=== PATIENT | female | born 1965 | race Hispanic/Latino ===

== ENCOUNTER 2018-07-25 06:32 | Day surgery (SDC) | payer BC ==
[2018-07-20 14:17] LABS: Potassium 4.1 mmol/L (3.5-5.1)
[2018-07-25 06:57] LABS: Specific Gravity 1.025 (1.005-1.030)
[2018-07-25] MEDS ORDERED: Ringers Lactate 1,000 ML IV ONE (06:58)
[2018-07-25] MEDS ORDERED: FENTANYL CITR 100 MCG/2 ML ONE ×2 (07:07→08:01)
[2018-07-25] MEDS ORDERED: PROPOFOL 200 MG/20 ML VIAL IV ONE (07:07)
[2018-07-25] MEDS ORDERED: LIDOCAINE 2% MPF 5 ML VIAL ONE (07:07)
[2018-07-25] MEDS ORDERED: MIDAZOLAM HCL 2 MG/2 ML INJ ONE (07:07)
[2018-07-25] MEDS ORDERED: ONDANSETRON HCL 40 MG/20 ML VIAL ONE (07:08)
[2018-07-25] MEDS: MEPERIDINE HCL 25 MG/0.5 ML ONE ×3 (08:48→09:02)
[2018-07-25] MEDS ORDERED: MEPERIDINE HCL 25 MG/0.5 ML ONE (09:08)
[2018-07-25] MEDS ORDERED: IBUPROFEN 200 MG TAB PO ONE (10:35)
[2018-07-25] MEDS ORDERED: IBUPROFEN 400 MG TAB ONE (10:36)
--- NOTE | 2018-07-25 11:54 | OP ---
Date of Procedure: 07/25/2018 Surgeon: Kiersten Laughlin MD Preoperative Diagnoses: Menorrhagia, leiomyomata, possible submucous leiomyoma. Postoperative Diagnoses: Menorrhagia, leiomyomata, and intrauterine adhesions. Procedures Performed: 1.Operative hysteroscopy. 2.Lysis of intrauterine synechiae. 3.Dilation and curettage. Anesthesia: General with LMA. Specimens: Endometrial curettings. Complications: No complications. Drains: None. Condition: Stable. Fluid deficit minimal. Findings: Uterus severely retroflexed. Cavity in the distal 1/3 appeared to be open, and endometriu m appeared to be thickened. Central intrauterine synechiae consistent with prior ablation. Attempt was made to take down the synechiae and most of them were taken down, however, no appearance of leiom yomata could be resected from the cavity. The endometrial curettings were small amount. Description Of Procedure: After informed consent was verified, patient was taken back to the OR, crystal laura in a supine fashion on the operating table. After general anesthesia was given, she was placed i n a dorsal lithotomy position using Von stirrups. Pelvic exam was performed. Uterus retroflexed. Cervix anterior. Prep x3 with Betadine was done. Anterior lip grasped with 2 Allis clamps, then wi th a single-tooth tenaculum. The cervix was unable to be traversed with the 18-Moldovan Symphion scope , so this was downsized to a SlimLine diagnostic hysteroscope with a separate bag, then passed the sc ope through the cervical canal into the uterine cavity. Once the cavity was opened up with the help of the scope, then this was dilated to 18-Moldovan sequentially with the cervical dilators. Then, the Symphion scope was primed, and we started the procedure. The resectoscopic device was also inserted through the shaft while performing this. Once we were in the uterine cavity, then the plan was to take down the intrauterine adhesions in the center such to be able to visualize the entire ca vity if there was anything behind it. No appearance of leiomyomata despite taking down all the adhes ions, so at this point, the curettings were performed in a circumferential fashion. Then, pictures w ere taken. The scope was removed. The fluid deficit was minimal. Normal saline was used for disten tion, 30-degree lens and 18-Moldovan scope as described above. All the instruments were removed. Instrument, needle, and sponge counts were done and were correct a t the end of the case. The patient was recovered from anesthesia and taken to PACU in a stable condi tion. She will follow up in the office at 1 week for her pathology results and discussion of her fur ther options, which include observation, possible repeat ablation, or medical treatment versus a hyst erectomy. BINU/ERROL Voice ID: [id number] Report ID: [id number]
== END 2018-07-25 11:15 | disposition home or self-care (01) ==
LOC: OR 06:32
PROVIDERS: ATTEND Obstetrics & Gynecology
PROC: 0UN98ZZ Release Uterus, Via Natural or Artificial Opening Endoscopic (ICD-10-PCS; 2018-07-25)
PROC: 0UDB8ZX Extraction of Endometrium, Via Natural or Artificial Opening Endoscopic, Diagnostic (ICD-10-PCS; principal; 2018-07-25 07:30)
DX: N92.1 Excessive and frequent menstruation with irregular cycle (principal); N85.6 Intrauterine synechiae; I10 Essential (primary) hypertension; Z80.41 Family history of malignant neoplasm of ovary
CPT/HCPCS: 36415; 80048; 81025; 88305; J2175; J2250; J2405; J3010

== ENCOUNTER 2019-01-11 06:32 | Day surgery (SDC) | payer BC ==
[2019-01-08 11:26] LABS: Absolute Monocytes 0.7 K/uL (0.1-1.3); Basophils % 0.8 % (0-1.3); Eosinophils % 2.4 % (0-4.4); Hematocrit 44.6 % (36.0-45.0); Monocytes % 8.1 % (3.3-12.3); RBC Red Blood Cell Count 4.87 M/uL (3.86-4.86)
[2019-01-08 11:28] LABS: Urine Appearance CLOUDY; Urine Bilirubin NEGATIVE (NEG); Urine Blood 2+ (NEG); Urine Color YELLOW; Urine Glucose NEGATIVE (NEG); Urine Protein NEGATIVE (NEG); Urine Urobilinogen 0.2 mg/dL (0.2-1.0)
[2019-01-08 11:29] LABS: Urine Microscopic Reflex ORDER UMIC
[2019-01-08 11:35] LABS: Urine Bacteria 20-50 /HPF (<20); Urine Culture Reflex Order NOT NEEDED
[2019-01-11] MEDS ORDERED: Ringers Lactate 1,000 ML IV ONE ×2 (07:00→09:21)
[2019-01-11] MEDS ORDERED: CEFAZOLIN/SWI 2gm 2 GM/20 ML SYR ONE (07:00)
[2019-01-11] MEDS ORDERED: SCOPOLAMINE HYDROBROMIDE PATCH TD ONE (07:00)
[2019-01-11] MEDS ORDERED: PROPOFOL 200 MG/20 ML VIAL IV ONE (07:13)
[2019-01-11] MEDS ORDERED: ROCURONIUM 50 MG/5 ML VIAL IV ONE ×2 (07:14→08:23)
[2019-01-11] MEDS ORDERED: GLYCOPYRROLATE 0.2 MG/ML SYR ONE ×2 (07:14→10:45)
[2019-01-11] MEDS ORDERED: DEXAMETHASONE 10 MG/ML VIAL ONE (07:15)
[2019-01-11] MEDS ORDERED: LIDOCAINE 2% MPF 5 ML VIAL ONE (07:15)
[2019-01-11] MEDS ORDERED: MIDAZOLAM HCL 2 MG/2 ML INJ ONE (07:16)
[2019-01-11] MEDS ORDERED: FENTANYL CITR 250 MCG/5 ML ONE (07:16)
[2019-01-11] MEDS ORDERED: NEOSTIGMINE 1 MG/ML -10 ML VIAL ONE ×2 (07:20→10:45)
[2019-01-11] MEDS ORDERED: ONDANSETRON 4 MG/2 ML VIAL ONE ×3 (07:20→13:29)
[2019-01-11] MEDS ORDERED: NA CHLORIDE 0.9% 1,000 ML ONE (07:39)
[2019-01-11] MEDS ORDERED: EPHEDRINE SULF 50 MG/ML VIAL ONE (08:33)
[2019-01-11] MEDS ORDERED: KETOROLAC 30 MG/ML INJ ONE (09:59)
[2019-01-11] MEDS ORDERED: FENTANYL CITR 100 MCG/2 ML ONE (10:24)
[2019-01-11] MEDS ORDERED: HYDROCODONE/APAP 5/325 MG TAB PO PRN (10:26)
[2019-01-11] MEDS ORDERED: MEPERIDINE HCL 25 MG/0.5 ML IM PRN (10:26)
[2019-01-11] MEDS ORDERED: IBUPROFEN 200 MG TAB PO PRN (10:26)
[2019-01-11] MEDS ORDERED: PROMETHAZINE 25 MG TABLET PO PRN (10:26)
[2019-01-11] MEDS: HYDROMORPHONE HCL 1 MG/ML INJ ONE ×2 (10:53→10:58)
[2019-01-11] MEDS ORDERED: HYDROCODONE/APAP 5/325 MG TAB ONE (12:36)
--- NOTE | 2019-01-11 19:15 | OP ---
Date of Procedure: 01/11/2019 Surgeon: Kiersten Laughlin MD Pie Crimping Machine Operator: Marleni Fuchs. Preoperative Diagnoses: Recurrent menorrhagia, dysmenorrhea, and fibroids. Postoperative Diagnoses: Recurrent menorrhagia, dysmenorrhea, fibroids, and endometriosis. Procedures Performed: Total laparoscopic hysterectomy, bilateral salpingo-oophorectomy, endometriosi s excision, lysis of adhesion, cystoscopy. Anesthesia: General endotracheal. Specimens: Uterus, bilateral tubes and ovaries. Endometriosis was present as specimen with the uter us. One other implant was ablated and left alone without excision. Estimated Blood Loss: Minimal. Complications: None. Drains: Malcolm catheter. There was extensive lysis of bladder adhesions and therefore Malcolm catheter had to be left in place for bladder rest for 3 days. The patient is being discharged home with a Fo dontae. Condition: Stable. Findings: There were dense adhesions to the anterior abdominal wall from the omentum due to her prio r laparoscopic cholecystectomy, her , and tubal, all those things. The adhesions had to be t aken down in order for me to even start the case, and these were quite dense and were taken down with the LigaSure visualizing, there were omental adhesions to the sidewall to the endometriosis on the u terus and bilateral lateral aspects of the scar. Uterus with endometriosis on the top of the serosa, there was endometriosis in the posterior cul-de-s ac in the left lateral pararectal space. This was cauterized, but rest of the lesions were removed w ith the specimen of the uterus. Both tubes and ovaries were removed. There were extensive adhesions of the bladder, very dense to the lower part of the body of the uterus. Once these were , there was a superficial bladder injury. There was nothing that needed suturing. However, bladder re st was felt to be appropriate, and so patient was left with a Malcolm catheter, after the procedure was done, cystoscopy was performed and the entire bladder appeared to be completely intact without evide nce of any foreign body or injury to the bladder. Both ureteric orifices were patent and good stream s of urine from both. Description Of Procedure: After informed consent was verified, the patient was brought back to the O R, placed in a supine fashion on the operating table. Two grams of Ancef were given. She was then p laced in a dorsal lithotomy position using Von stirrups. Arms were tucked by the side. SCDs were started. Time-out done. Then procedure started. Abdomen, vulva, vagina, and perineum were prepped and draped in a sterile fashion. Malcolm was placed to drain the bladder and attached to cysto-tubing to be able to retrograde fill. A medium VCare was introduced into the uterus and fixed in place. It was difficult to advance the tip of the VCare all the way past the adhesions, that are a consequence of her prior ablations, but the uterus appeared to be enlarged, about 10 week size. After the bottom was draped, a supraumbilical incision was made about 5 cm above the level of the umb ilicus in the midline with a 15-blade. The fascia was exposed and incised with the same, and the fas cial edges were tagged with 0 Vicryl sutures. Then, peritoneum was entered sharply with scissors, th en S retractors placed after clearing out the peritoneal edges with my finger by sweeping around, the n Deanne was introduced and fixed in place. We had difficulties with the case starting due to the fa ct that there were monitor issues and camera issues. They had to be solved, then I continued with e case. A 5 mm left lower quadrant port was placed under direct vision and a 10 mm suprapubic, then went with a 5 mm camera through the left lower quadrant in order to take down the adhesions of the omentum dionicio t were extremely dense right at the level of the umbilicus. These were completely taken down with th e LigaSure. Then after the 10 port was placed, other adhesions were taken down with the help of the 5 port. Then, a 5 mm right lower quadrant port was also placed. The adhesions of the omentum to the right and left lateral lepe and to the scar were all taken down. This exposed the uterus. Then, the patient was placed in Trendelenburg position. The colon was retracted with the epiploica e that were tagged with the help of a 3-0 Monocryl stitch and using the Chapin-Zeyad, the retracti on was obtained from the superior aspect of the left upper quadrant. Once the pelvic cavity was well visualized, there was endometriosis in the left lateral cul-de-sac, b ut all other than that, no other lesions were seen in the cul-de-sac. There were lateral lesions in the posterior peritoneum, close to the uterosacral, and these were to be dissected along and left jakub ng with the uterine specimen. Both ureters were identified from the pelvic brim to the ureteric tunnel, and there was no evidence o f any anatomical distortion. The bladder anteriorly was densely adhered, and there was no space betw een the bladder peritoneum and the uterus, and this was to be taken down when performing the bladder flap. The left tube was first taken down. Utero-ovarian ligament was taken down. The round ligament was t aken down. The anterior and posterior leaves of the broad ligament were opened up. The posterior wa s taken out dissecting the ureter laterally. Then I was able to open the peritoneum anteriorly and o pened up the adhesions of the bladder and dissect the peritoneum first and leave the bladder adhesion s alone first, going onto the opposite side opening the bladder peritoneum. Then coming back on the left side, the adhesions were well visualized. The broad ligament was completely skeletonized to exp ose the vessels. This was left alone at this point. Then, on the right side, the same dissection wa s performed taking down the tube, utero-ovarian ligament, mesosalpinx, round ligament, broad ligament opened up. Posterior aspect of the broad ligament opened easily to the level of the right uterosacr al ligament, here there was some endometriosis that was included on the medial aspect so that it coul d be included with the specimen. The broad ligament was skeletonized to expose the vessels. Then, the scar here was gently dissected with push-spread technique, exposed well, making sure there was no bladder here, and I cut. The blad avila was adhered to the lower segment of the uterus all the way around the anterior aspect from side-t o-side. Vesicovaginal space was entered first on the right side from the lateral aspect. Then, the bladder adhesions were taken down systematically with the help of the bipolar LigaSure and some areas without cautery and just with cutting. However, there was some damage superficially to the bladder muscle while performing this and this was very superficial, it was mostly bladder serosa. Then went onto the opposite side and the vesicovaginal space was developed underneath the bladder. Then, the b ladder attachment was cut sharply all the way to the left lateral aspect. Once the bladder was relea sed, the vesicovaginal space was further developed on the left side and to the left of the midline as well and then the midline. The dissection was performed to push the bladder inferiorly leaving at l east 3 cm of the anterior vaginal wall exposed below the level of the colpotomy. The scar was much more dense on the lateral aspect where the vessels were to be taken down, so plan w as to perform a colpotomy anteriorly, and then start taking down the lateral aspect. First the vesse ls on the right side were taken and the cardinal ligaments as well with the help of the LigaSure. Th en, the monopolar hook blade was used to perform a colpotomy starting from the midline to the right s ruth all the way down to the level of the right uterosacral ligament. Then leaving this attached stil l to the apex of the cuff, we went on the left side. Here, the vessels were exposed first, vessels w ere taken down with the help of the bipolar basket tip and the 5 mm LigaSure. There was a twist/torq ue on the vaginal cuff with the cup being turned due to the orientation of the uterus and our inabili ty to be able to manipulate it, probably limited by the adhesions of the top of the endometrial canal . After untwisting of this part where the uterine vein was cauterized and cut, there was very minima l bleeding. Once the cardinal ligaments were also cleared out laterally on the left side, then the c olpotomy was performed to complete with a hook blade. Uterus fit very snugly to be retrieved through the vaginal incision. There was a small laceration that occurred while removing this in the right l ateral aspect, about 1 cm, just needed a suture for this to work. Both tube and ovary from the left side were dissected taking down the infundibulopelvic ligament and the mesosalpinx. They were left t ogether without separation and then retrieved through the vagina. The right tube was dissected out o f the mesosalpinx first and removed. Then, the ovary was dissected without any problems from the inf undibulopelvic ligament on the lateral attachment to the lateral wall. This was retrieved through th e vagina as well. Thorough irrigation and suction were performed. No evidence of any active bleedin g. Good hemostasis at both pedicles of the ovarian dissection. The vaginal cuff was closed with the help of a 0 Vicryl in a simple fashion at both angles, on the ri ght side as the closure was being done, attention was paid so that I could suture the laceration that occurred while retrieving the uterus. Then 3 vloqcy-gs-gqzgjq were placed in the middle to have goo d apposition and tissue closure and support, we made sure that the precervical fascia and the rectova ginal septum were included in the suturing. After this was done, the posterior cul-de-sac, left lateral pararectal space lesion was cauterized an d left alone. Then, the peritoneum closed with the help of 3-0 Vicryl in a continuous running fashio n on top of the vaginal cuff, and this made the vaginal closure retroperitoneal as well as the bladde r that was dissected to have layer of peritoneum on the top. After thorough irrigation and suction were performed, pictures were taken. The ports were removed un avila direct vision. Gas desufflated. The umbilical port removed. Fascia at the umbilicus closed wit h the yiqdjl-fn-tfvio tag sutures that were placed, simple 0 Vicryl stitch at the suprapubic fascial incision. All skin incisions closed with interrupted 4-0 Vicryl. Malcolm removed. Vaginal bulb remov ed that was placed for occlusion for maintaining pneumoperitoneum. A cystoscopy was performed with a 17-[place] sheath, 30-degree lens, and normal saline. Normal jets of urine from both ureteric orific es. No evidence of any trauma, electrical or mechanical, to the bladder. No foreign body seen as we ll. There were strong jets of urine from both ureteric orifices. The bladder was completely drained Malcolm was replaced. The vagina was cleaned up and visualized. The sutures were intact and the vagi nal cuff closure optimal. Instrument, needle, and sponge counts x3 were correct at the end of the ca se. The patient tolerated the procedure well. She was extubated in the OR and taken to the PACU in stable condition with Malcolm in place, and instructions given to take Macrobid daily. Malcolm to be lef t in place for 4 days. She will be given instructions to remove it at home and has a 1-week follow u p with me. Any problems to call. All instructions left in the chart. BINU/ERROL Voice ID: [id number] Report ID: [id number]
== END 2019-01-11 13:40 | disposition home or self-care (01) ==
LOC: OR 06:32
PROVIDERS: ATTEND Obstetrics & Gynecology
PROC: 0UT24ZZ Resection of Bilateral Ovaries, Percutaneous Endoscopic Approach (ICD-10-PCS; 2019-01-11)
PROC: 0UT74ZZ Resection of Bilateral Fallopian Tubes, Percutaneous Endoscopic Approach (ICD-10-PCS; 2019-01-11)
PROC: 0U5F4ZZ Destruction of Cul-de-sac, Percutaneous Endoscopic Approach (ICD-10-PCS; 2019-01-11)
PROC: 0UT94ZZ Resection of Uterus, Percutaneous Endoscopic Approach (ICD-10-PCS; principal; 2019-01-11 07:30)
DX: D25.0 Submucous leiomyoma of uterus (principal); N92.1 Excessive and frequent menstruation with irregular cycle; N94.6 Dysmenorrhea, unspecified; N88.8 Other specified noninflammatory disorders of cervix uteri; N83.8 Other noninflammatory disorders of ovary, fallopian tube and broad ligament; N83.12 Corpus luteum cyst of left ovary; N80.0 Endometriosis of uterus; N32.89 Other specified disorders of bladder; K66.0 Peritoneal adhesions (postprocedural) (postinfection); N80.3 Endometriosis of pelvic peritoneum; N80.8 Other endometriosis
CPT/HCPCS: 36415; 81003; 81015; 81025; 85025; 86850; 86900; 86901; 88307; 88309; J0690; J1100; J1170; J2250; J2405; J2704; J2710; J3010; J7030

== ENCOUNTER 2019-01-13 06:44 | Emergency (ER) | payer BC ==
[2019-01-13] MEDS ORDERED: NA CHLORIDE 0.9% 1,000 ML ONE (07:21)
[2019-01-13] MEDS ORDERED: ONDANSETRON 4 MG/2 ML VIAL ONE ×2 (07:22→07:44)
[2019-01-13] MEDS ORDERED: SIMETHICONE 80 MG TAB ONE (07:30)
[2019-01-13 07:33] LABS: Absolute Neutrophil 14.7 K/uL (1.8-8.0); Basophils % 0.4 % (0-1.3); Eosinophils % 0.6 % (0-4.4); Hematocrit 42.6 % (36.0-45.0); Lymphocytes % 5.8 % (15.3-44.8); MPV 9.6 fL (7.6-11.3); Monocytes % 5.7 % (3.3-12.3)
[2019-01-13] MEDS ORDERED: PROMETHAZINE 25 MG/ML VIAL ONE ×2 (07:53→09:38)
[2019-01-13 09:28] LABS: Blood Morphology Comment NOT SEEN (NOT SEEN); Platelet Estimate ADEQ; Urine White Blood Cell Casts OK
--- NOTE | 2019-01-13 09:36 | ER ---
Nurse's Notes [facility] Name: Radha Manrique Age: 53 yrs Sex: Female : 1965 Arrival Date: 01/13/2019 Time: 06:45 Bed 16 Private MD: Laura Vásquez K Diagnosis: Nausea and vomiting;Lower abdominal pain, unspecified Presentation: 01/13 06:54 Presenting complaint: Patient states: she had a hysterectomy 2 days ago and was aa1 prescribed Tylenol #3 and this morning around 0100 she began vomiting. States she had this same reaction to Tylenol #3 in the past but thought it was because she didn't eat with it but this time she ate and it still made her sick. Transition of care: patient was not received from another setting of care. Onset of symptoms was January 13, 2019 at 01:00. Risk Assessment: Do you want to hurt yourself or someone else? Patient reports no desire to harm self or others. Initial Sepsis Screen: Does the patient meet any 2 criteria? No. Patient's initial sepsis screen is negative. Does the patient have a suspected source of infection? No. Patient's initial sepsis screen is negative. Care prior to arrival: None. 06:54 Method Of Arrival: Wheelchair aa1 06:54 Acuity: JASE 3 aa1 Triage Assessment: 07:01 General: Appears in no apparent distress. uncomfortable, Behavior is calm, cooperative, aa1 appropriate for age. CFA: 07:01 LMP N/A - Hysterectomy aa1 Historical: - Allergies: 07:01 Codeine; aa1 - PMHx: 07:01 None; aa1 - PSHx: 07:01 Hysterectomy; leg sx; aa1 - Immunization history:: Flu vaccine is not up to date. - Social history:: Smoking status: Patient/guardian denies using tobacco. - Ebola Screening: : No symptoms or risks identified at this time. Screenin:04 Abuse screen: Denies threats or abuse. Nutritional screening: No deficits noted. em Tuberculosis screening: No symptoms or risk factors identified. Fall Risk None identified. Assessment: 07:05 General: Appears in no apparent distress. uncomfortable, Behavior is cooperative, em anxious, crying, Reports hysterectomy 2 days ago, nauseous after taking hydrocodone medication Denies fever. Pain: Complains of pain in abdomen and epigastric area. Neuro: Level of Consciousness is awake, alert, obeys commands, Oriented to person, place, time, situation. Cardiovascular: Heart tones S1 S2 present Capillary refill < 3 seconds Patient's skin is warm and dry. Respiratory: Airway is patent Respiratory effort is even, unlabored, Respiratory pattern is regular, symmetrical. GI: Abdomen is round non-distended, Bowel sounds present X 4 quads. Abd is soft X 4 quads Abdomen is tender to palpation in abdomen diffusely Reports. : Malcolm in place to gravity drainage Urine is clear, Denies burning with urination. EENT: No signs and/or symptoms were reported regarding the EENT system. Derm: Skin is intact, is healthy with good turgor, Skin is pink, warm \T\ dry. Wound noted sugical incision noted in suprapubic area. Musculoskeletal: Capillary refill < 3 seconds, Range of motion: intact in all extremities. 07:30 Reassessment: nausea medication has not helped symptoms, provider notified, new em medication orders received. 07:45 Reassessment: pt actively vomiting, provider notified, new medication orders received. em 08:40 Reassessment: Patient appears in no apparent distress at this time. Patient and/or em family updated on plan of care and expected duration. Pain level reassessed. Patient is alert, oriented x 3, equal unlabored respirations, skin warm/dry/pink. nausea has improved, rates pain 1/10 Patient states feeling better. Patient states symptoms have improved. 09:40 Reassessment: Patient appears in no apparent distress at this time. No changes from em previously documented assessment. Patient and/or family updated on plan of care and expected duration. Pain level reassessed. Patient is alert, oriented x 3, equal unlabored respirations, skin warm/dry/pink. Vital Signs: 07:01 BP 150 / 99; Pulse 88; Resp 22; Temp 97.7; Pulse Ox 100% on R/A; Weight 79.83 kg; aa1 Height 5 ft. 3 in. (160.02 cm); 08:00 BP 140 / 91; Pulse 76; Resp 18; Pulse Ox 99% on R/A; Pain 1/10; em 07:01 Body Mass Index 31.18 (79.83 kg, 160.02 cm) aa1 ED Course: 06:45 Patient arrived in ED. am2 06:45 Laura Vásquez MD is Private Physician. am2 06:48 [facility]C [facility]. snw 06:48 Timoteo Barry MD is Attending Physician. snw 07:01 Triage completed. aa1 07:01 Arm band placed on left wrist. aa1 07:04 Patient has correct armband on for positive identification. Bed in low position. Call em light in reach. Adult w/ patient. Pulse ox on. NIBP on. 07:05 Initial lab(s) drawn, by me, sent to lab. Inserted saline lock: 20 gauge in left em antecubital area, using aseptic technique. Blood collected. 07:08 Nirmal Osorio LVN is Primary Nurse. em 09:35 Kiersten Laughlin MD is Referral Physician. snw 09:52 IV discontinued, Pressure dressing applied. 5 10:12 No provider procedures requiring assistance completed. IV discontinued, intact, em bleeding controlled, No redness/swelling at site. Administered Medications: 07:17 Drug: NS 0.9% 1000 ml Route: IV; Rate: 1 bolus; Site: left antecubital; iw 08:34 Follow up: IV Status: Completed infusion; IV Intake: 1000ml em 07:17 Drug: Zofran 4 mg Route: IVP; Site: left antecubital; iw 07:37 Follow up: Response: No adverse reaction; Nausea unchanged em 07:37 Drug: Zofran 4 mg Route: IVP; Site: left antecubital; em 07:47 Follow up: Response: No adverse reaction; Nausea unchanged em 07:47 Drug: Phenergan 12.5 mg Route: IVP; Site: left antecubital; iw 08:34 Follow up: Response: No adverse reaction; Nausea is decreased em 08:34 Drug: Simethicone 120 mg Route: PO; em 10:10 Follow up: Response: No adverse reaction em 09:34 Drug: fentaNYL (PF) 25 mcg Route: IM; Site: left deltoid; em 10:08 Follow up: Response: No adverse reaction em 09:34 Drug: Phenergan 12.5 mg Route: IVP; Site: left antecubital; em 10:09 Follow up: Response: No adverse reaction; Nausea is decreased em Intake: 08:34 IV: 1000ml; Total: 1000ml. em Outcome: 09:35 Discharge ordered by . snw 10:10 Discharged to home via wheelchair, with family. em 10:10 Condition: good 10:10 Discharge instructions given to patient, family, Instructed on discharge instructions, follow up and referral plans. medication usage, Demonstrated understanding of instructions, follow-up care, medications, Prescriptions given X 2. 10:12 Patient left the ED. em Signatures: Deanna Boogie, RN RN aa1 Cesilia Laureano, MAIL HANDLERS SUPERVISOR-C MAIL HANDLERS SUPERVISOR-Csnw Nirmal Osorio, IRRIGATION FOREMAN IRRIGATION FOREMAN Rocío Larson RN RN iw Martinez, Maria [facility] Carol Garsia am
--- NOTE | 2019-01-13 09:36 | EDPHYS ---
Physician Documentation [facility] Name: Radha Manrique Age: 53 yrs Sex: Female : 1965 Arrival Date: 01/13/2019 Time: 06:45 Bed 16 Private MD: Laura Vásquez K ED Physician Timoteo Barry HPI: 01/13 06:56 This 53 yrs old Female presents to ER via Unassigned with complaints of snw Nausea/Vomiting, Post Surgical Pain. 06:56 The patient presents to the emergency department with nausea, that is moderate, that is snw severe, abdominal pain, of the right lower quadrant and left lower quadrant, described as crampy, and radiates to the epigastric area. Onset: The symptoms/episode began/occurred suddenly, today. Possible causes: Lap hyst on Thurs. Associated signs and symptoms: Pertinent positives: abdominal pain, nausea. Severity of symptoms: At their worst the symptoms were moderate. The patient has not experienced similar symptoms in the past. The patient has been recently seen by a physician: Dr. Laughlin. pt has had similar N/V episodes with T#3 in the past. Pt states she tried eating with the medication but it has not relieved the associated nausea. 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 - Social history:: Smoking status: Patient/guardian denies using tobacco. - Ebola Screening: : No symptoms or risks identified at this time. ROS: 06:56 Constitutional: Negative for fever, chills, and weight loss, Eyes: Negative for injury, snw pain, redness, and discharge, ENT: Negative for injury, pain, and discharge, Neck: Negative for injury, pain, and swelling, Cardiovascular: Negative for chest pain, palpitations, and edema, Respiratory: Negative for shortness of breath, cough, wheezing, and pleuritic chest pain, Back: Negative for injury and pain, : Negative for injury, bleeding, discharge, and swelling, MS/Extremity: Negative for injury and deformity, Skin: Negative for injury, rash, and discoloration, Neuro: Negative for headache, weakness, numbness, tingling, and seizure. 06:56 Abdomen/GI: Positive for abdominal pain, nausea. Exam: 06:52 Head/Face: Normocephalic, atraumatic. Eyes: Pupils equal round and reactive to light, snw extra-ocular motions intact. Lids and lashes normal. Conjunctiva and sclera are non-icteric and not injected. Cornea within normal limits. Periorbital areas with no swelling, redness, or edema. ENT: Nares patent. No nasal discharge, no septal abnormalities noted. Tympanic membranes are normal and external auditory canals are clear. Oropharynx with no redness, swelling, or masses, exudates, or evidence of obstruction, uvula midline. Mucous membranes moist. Neck: Trachea midline, no thyromegaly or masses palpated, and no cervical lymphadenopathy. Supple, full range of motion without nuchal rigidity, or vertebral point tenderness. No Meningismus. Chest/axilla: Normal chest wall appearance and motion. Nontender with no deformity. No lesions are appreciated. Cardiovascular: Regular rate and rhythm with a normal S1 and S2. No gallops, murmurs, or rubs. Normal PMI, no JVD. No pulse deficits. Respiratory: Lungs have equal breath sounds bilaterally, clear to auscultation and percussion. No rales, rhonchi or wheezes noted. No increased work of breathing, no retractions or nasal flaring. Back: No spinal tenderness. No costovertebral tenderness. Full range of motion. Skin: Warm, dry with normal turgor. Normal color with no rashes, no lesions, and no evidence of cellulitis. MS/ Extremity: Pulses equal, no cyanosis. Neurovascular intact. Full, normal range of motion. Neuro: Awake and alert, GCS 15, oriented to person, place, time, and situation. Cranial nerves II-XII grossly intact. Motor strength 5/5 in all extremities. Sensory grossly intact. Cerebellar exam normal. Normal gait. Psych: Awake, alert, with orientation to person, place and time. Behavior, mood, and affect are within normal limits. 06:52 Constitutional: The patient appears alert, awake, anxious, frail. 06:52 Abdomen/GI: Inspection: intact, dry surgical dressing, splinting abd. + flatus, + hypoactive bowel sounds x 4 quads, Palpation: mild abdominal tenderness, in the right lower quadrant and left lower quadrant. Vital Signs: 07:01 BP 150 / 99; Pulse 88; Resp 22; Temp 97.7; Pulse Ox 100% on R/A; Weight 79.83 kg; aa1 Height 5 ft. 3 in. (160.02 cm); 08:00 BP 140 / 91; Pulse 76; Resp 18; Pulse Ox 99% on R/A; Pain 1/10; em 07:01 Body Mass Index 31.18 (79.83 kg, 160.02 cm) aa1 MDM: 06:49 Patient medically screened. anderson 09:39 Data reviewed: vital signs, nurses notes. Data interpreted: Pulse oximetry: on room air snw is 99 %. Interpretation: normal. Counseling: I had a detailed discussion with the patient and/or guardian regarding: the historical points, exam findings, and any diagnostic results supporting the discharge/admit diagnosis, lab results, the need for outpatient follow up, to return to the emergency department if symptoms worsen or persist or if there are any questions or concerns that arise at home. Response to treatment: the patient's symptoms have mildly improved after treatment. Special discussion: Based on the patient's Hx, exam, and Dx evaluation, there is no indication for emergent surgery or inpatient Tx. It is understood by the patient/guardian that if the Sx's persist or worsen they need to return immediately for re-evaluation. Based on the history and exam findings, there is no indication for further emergent testing or inpatient evaluation. I discussed with the patient/guardian the need to see the OB Gyne specialist for further evaluation of the symptoms. I discussed with the patient/guardian the need to see the primary care provider for further evaluation of the symptoms. 01/13 06:52 Order name: CBC with Diff; Complete Time: 09:29 snw 01/13 06:52 Order name: Chem 7; Complete Time: 07:48 snw 01/13 07:49 Order name: CBC Smear Scan; Complete Time: 09:29 EDMS Administered Medications: 07:17 Drug: NS 0.9% 1000 ml Route: IV; Rate: 1 bolus; Site: left antecubital; iw 08:34 Follow up: IV Status: Completed infusion; IV Intake: 1000ml em 07:17 Drug: Zofran 4 mg Route: IVP; Site: left antecubital; iw 07:37 Follow up: Response: No adverse reaction; Nausea unchanged em 07:37 Drug: Zofran 4 mg Route: IVP; Site: left antecubital; em 07:47 Follow up: Response: No adverse reaction; Nausea unchanged em 07:47 Drug: Phenergan 12.5 mg Route: IVP; Site: left antecubital; iw 08:34 Follow up: Response: No adverse reaction; Nausea is decreased em 08:34 Drug: Simethicone 120 mg Route: PO; em 10:10 Follow up: Response: No adverse reaction em 09:34 Drug: fentaNYL (PF) 25 mcg Route: IM; Site: left deltoid; em 10:08 Follow up: Response: No adverse reaction em 09:34 Drug: Phenergan 12.5 mg Route: IVP; Site: left antecubital; em 10:09 Follow up: Response: No adverse reaction; Nausea is decreased em Disposition: 01/13/19 09:35 Discharged to Home. Impression: Nausea and vomiting, Lower abdominal pain, unspecified. - Condition is Stable. - Discharge Instructions: Abdominal Pain, Adult, Nausea and Vomiting, Adult, Intestinal Gas and Gas Pains, Pediatric. - Prescriptions for Gas- X Ultra-Strength - take 1 unit by ORAL route 2-3 times daily; 1 box. Zofran 4 mg Oral Tablet - take 1 tablet by ORAL route every 12 hours As needed; 20 tablet. - Work release form, Medication Reconciliation Form, Thank You Letter, Antibiotic Education, Prescription Opioid Use form. - Follow up: Kiersten Laughlin MD; When: 2 - 3 days; Reason: Recheck today's complaints, Continuance of care, Re-evaluation by your physician. Follow up: Emergency Department; When: As needed; Reason: Worsening of condition. - Notes: Rock as often as possible Addendum: 01/15/2019 11:18 Co-signature as Attending Physician, Timoteo Barry MD I agree with the assessment and c daniels plan of care. Signatures: Dispatcher [employer] EDDeanna Boston RN RN aa1 Timoteo Barry MD MD cha Therrien, Shelly, TAP BUILDER-C TAP BUILDER-Csnw Nirmal Osorio, PATTERN MECHANIC PATTERN MECHANIC Rocío Larson RN RN iw Corrections: (The following items were deleted from the chart) 01/13 10:12 09:35 01/13/2019 09:35 Discharged to Home. Impression: Nausea and vomiting; Lower em abdominal pain, unspecified. Condition is Stable. Forms are Medication Reconciliation Form, Thank You Letter, Antibiotic Education, Prescription Opioid Use. Follow up: Kiersten Laughlin; When: 2 - 3 days; Reason: Recheck today's complaints, Continuance of care, Re-evaluation by your physician. Follow up: Emergency Department; When: As needed; Reason: Worsening of condition. snw
[2019-01-13] MEDS ORDERED: FENTANYL CITR 100 MCG/2 ML ONE (09:38)
== END 2019-01-13 10:12 | disposition home or self-care (01) ==
LOC: ER 06:44
DX: R10.30 Lower abdominal pain, unspecified (principal); Z88.5 Allergy status to narcotic agent; Z90.710 Acquired absence of both cervix and uterus
CPT/HCPCS: 36415; 80048; 85025; 96361; 96372; 96374; 96375; 99284; J2405; J2550; J3010; J7030